=== PATIENT | male | born 1955 | race Caucasian/White ===

== ENCOUNTER 2017-03-03 12:10 | Inpatient (IN) | payer MEDICARE, OTHER ==
[~2017-03-03] VITALS: Ht 185.4 cm; Wt 107.5 kg
[2017-03-03] MEDS ORDERED: GABAPENTIN800 MG PO (18:02)
[2017-03-03] MEDS ORDERED: LYRICA300 MG PO (18:03)
[2017-03-03] MEDS ORDERED: LISINOPRIL10 MG PO (18:03)
[2017-03-03] MEDS ORDERED: GLUCOPHAGE 500500 MG PO (18:05)
[2017-03-03 19:47] LABS: HEMOGLOBIN 14.9 gm/dl (14.0-17.5); RED BLOOD COUNT 5.27 M/UL (4.20-5.50); WHITE BLOOD COUNT 10.7 K/UL (4.5-11.0)
[2017-03-03 20:09] LABS: BUN/CREATININE RATIO 25 (0-10)
[2017-03-04 06:44] LABS: BUN/CREATININE RATIO 19 (0-10)
[2017-03-05 04:47] LABS: BUN/CREATININE RATIO 15 (0-10)
[2017-03-06 05:13] LABS: HEMOGLOBIN 14.5 gm/dl (14.0-17.5); RED BLOOD COUNT 5.14 M/UL (4.20-5.50)
[2017-03-06 05:14] LABS: WHITE BLOOD COUNT 5.7 K/UL (4.5-11.0)
[2017-03-06 05:22] LABS: BUN/CREATININE RATIO 18 (0-10)
[2017-03-08] MEDS ORDERED: ZOSYN 4.5 GRAM4.5 GM IV ×2 (11:02→11:24)
[2017-03-08] MEDS ORDERED: NORCO 7.5-3251 EACH PO (11:58)
[2017-03-08] MEDS ORDERED: VITAMIN C 500500 MG PO (11:58)
== END 2017-03-08 13:38 | disposition home health service (06) | DRG 629 ==
LOC: MED SURG 4 16:24
PROVIDERS: Physician Assistant; Podiatrist Foot & Ankle Surgery; ADMIT Internal Medicine Infectious Disease
PROC: 3E0234Z Introduction of Serum, Toxoid and Vaccine into Muscle, Percutaneous Approach (ICD-10-PCS; 2017-03-04)
PROC: 02HV33Z Insertion of Infusion Device into Superior Vena Cava, Percutaneous Approach (ICD-10-PCS; 2017-03-07)
PROC: B548ZZA Ultrasonography of Superior Vena Cava, Guidance (ICD-10-PCS; 2017-03-07)
PROC: 0S9M0ZZ Drainage of Right Metatarsal-Phalangeal Joint, Open Approach (ICD-10-PCS; 2017-03-08)
PROC: 0QBQ0ZZ Excision of Right Toe Phalanx, Open Approach (ICD-10-PCS; principal; 2017-03-08 07:45)
DX: E11.69 Type 2 diabetes mellitus with other specified complication (principal); M86.8X7 Other osteomyelitis, ankle and foot; M00.871 Arthritis due to other bacteria, right ankle and foot; E11.42 Type 2 diabetes mellitus with diabetic polyneuropathy; B95.2 Enterococcus as the cause of diseases classified elsewhere; B96.89 Other specified bacterial agents as the cause of diseases classified elsewhere; E87.6 Hypokalemia; E66.9 Obesity, unspecified; Z68.31 Body mass index [BMI] 31.0-31.9, adult; Z23 Encounter for immunization; I10 Essential (primary) hypertension; L08.9 Local infection of the skin and subcutaneous tissue, unspecified; W45.0XXA Nail entering through skin, initial encounter; W26.8XXA Contact with other sharp object(s), not elsewhere classified, initial encounter; Z79.84 Long term (current) use of oral hypoglycemic drugs; Z79.899 Other long term (current) drug therapy; Z90.49 Acquired absence of other specified parts of digestive tract; Z98.890 Other specified postprocedural states; Z83.3 Family history of diabetes mellitus; Z82.49 Family history of ischemic heart disease and other diseases of the circulatory system
CPT/HCPCS: 36415; 73630; 73718; 80048; 80053; 80202; 82962; 83036; 85025; 85027; 86140; 87070; 87077; 87186; 87205; 90714; 90715; C1713; J1650; J2250; J2795; J3370; J7030; J7050; J7070; J7120

== ENCOUNTER → 2017-03-23 | Outpatient (CLI) | payer MEDICARE, OTHER ==
[~2017-03-23] MED LIST: GABAPENTIN800 MG PO; GLUCOPHAGE 500500 MG PO; LISINOPRIL10 MG PO; LYRICA300 MG PO; NORCO 7.5-3251 EACH PO; VITAMIN C 500500 MG PO; ZOSYN 4.5 GRAM4.5 GM IV
[2017-03-23 15:44] LABS: HEMOGLOBIN 14.4 gm/dl (14.0-17.5); RED BLOOD COUNT 5.09 M/UL (4.20-5.50); WHITE BLOOD COUNT 6.4 K/UL (4.5-11.0)
[2017-03-23 15:58] LABS: BUN/CREATININE RATIO 19 (0-10)
== END ==
LOC: OPSV 13:30
PROVIDERS: Internal Medicine Infectious Disease
DX: M00.871 Arthritis due to other bacteria, right ankle and foot (principal)
CPT/HCPCS: 36592; 80053; 85025; 86140; G0463

== ENCOUNTER → 2017-04-19 | Outpatient (CLI) | payer MEDICARE, OTHER ==
[2017-04-19 15:05] LABS: HEMOGLOBIN 14.3 gm/dl (14.0-17.5); RED BLOOD COUNT 5.11 M/UL (4.20-5.50); WHITE BLOOD COUNT 7.4 K/UL (4.5-11.0)
[2017-04-19 15:46] LABS: BUN/CREATININE RATIO 18 (0-10)
== END ==
LOC: OPSV 13:18
PROVIDERS: Internal Medicine Infectious Disease
DX: M00.871 Arthritis due to other bacteria, right ankle and foot (principal); M00.9 Pyogenic arthritis, unspecified
CPT/HCPCS: 36592; 80053; 85025; 86140; G0463

== ENCOUNTER → 2017-04-27 | Outpatient (CLI) | payer MEDICARE, OTHER | LOC: KOH-I 14:30 | DX: M86.171 Other acute osteomyelitis, right ankle and foot (principal); Z98.890 Other specified postprocedural states | CPT/HCPCS: 73718 ==

== ENCOUNTER 2021-09-23 14:32 | Emergency (ER) | payer MEDICARE ==
[~2021-09-23] VITALS: Ht 185.4 cm; Wt 102.1 kg
== END 2021-09-23 14:33 | disposition home or self-care (01) ==
LOC: ER1 14:32
DX: U07.1 COVID-19 (principal); Z23 Encounter for immunization; E11.40 Type 2 diabetes mellitus with diabetic neuropathy, unspecified; Z79.84 Long term (current) use of oral hypoglycemic drugs; Z79.899 Other long term (current) drug therapy
CPT/HCPCS: 99283; M0243

== ENCOUNTER → 2022-01-18 | Outpatient (CLI) | payer MEDICARE | LOC: CT 10:23 | DX: C20 Malignant neoplasm of rectum (principal); K74.60 Unspecified cirrhosis of liver; K62.89 Other specified diseases of anus and rectum; R59.0 Localized enlarged lymph nodes | CPT/HCPCS: 71046; 82378; 82565; Q9967 ==

== ENCOUNTER → 2022-07-12 | Outpatient (CLI) | payer MEDICARE | LOC: CT 13:29 | DX: C20 Malignant neoplasm of rectum (principal); R59.0 Localized enlarged lymph nodes | CPT/HCPCS: 71260; Q9967 ==